=== PATIENT | female | born 1990 | race Caucasian/White ===

== ENCOUNTER 2018-05-23 10:05 | Emergency (ER) | payer MEDICAID ==
[2018-05-23 11:16] LABS: URINE BLOOD (Dip) POC Negative (NEGATIVE); URINE GLUCOSE (Dip) POC Negative (NEGATIVE); URINE KETONES (Dip) POC Negative (NEGATIVE); URINE LEUKOCYTE EST (Dip) POC Negative (NEGATIVE); URINE NITRITE (Dip) POC Negative (NEGATIVE); URINE TOTAL PROTEIN POC Negative (NEGATIVE)
[2018-05-23] MEDS: ACETAMINOPHEN 325 MG TAB PO (11:18)
[2018-05-23 11:25] LABS: ADD MAN DIFF? NO
[2018-05-23 11:34] LABS: BASOPHILS % 0.4 % (0.0-2.0); EOSINOPHILS # 0.1 10^3/ul (0.0-0.5); EOSINOPHILS % 0.5 % (0.0-7.0); HEMATOCRIT 39.2 % (37.0-47.0); HEMOGLOBIN 13.3 g/dl (12.0-16.0); LYMPHOCYTES # 2.5 10^3/ul (0.8-2.9); LYMPHOCYTES % 25.5 % (15.0-51.0); MEAN CORPUSCULAR HEMOGLOBIN 30.4 pg (29.0-33.0); MEAN CORPUSCULAR HGB CONC 33.9 g/dl (32.0-37.0); MEAN CORPUSCULAR VOLUME 89.7 fl (82.0-101.0); MEAN PLATELET VOLUME 9.9 fl (7.4-10.4); MONOCYTE # 0.8 10^3/ul (0.3-0.9); NEUTROPHIL # 6.4 10^3/ul (1.6-7.5); NEUTROPHILS % 65.2 % (39.0-77.0); PLATELET COUNT 328 10^3/UL (140-415); RED BLOOD COUNT 4.37 10^6/ul (4.20-5.40); RED CELL DISTRIBUTION WIDTH 12.1 % (11.5-14.5)
[2018-05-23 11:34] LABS: WHITE BLOOD COUNT 9.8 10^3/ul (4.8-10.8)
== END 2018-05-23 12:47 | disposition home or self-care (01) ==
LOC: FTE 10:05
DX: O26.891 Other specified pregnancy related conditions, first trimester (principal); R10.2 Pelvic and perineal pain; Z3A.01 Less than 8 weeks gestation of pregnancy
CPT/HCPCS: 76801; 76817; 81003; 81025; 84702; 85025; 99284-25

== ENCOUNTER 2018-07-19 01:40 | Emergency (ER) | payer MEDICAID ==
[2018-07-19] MEDS: SOD CHLORIDE 0.9% 1,000 ML IV (03:06)
[2018-07-19 03:13] LABS: WHITE BLOOD COUNT 14.9 10^3/ul (4.8-10.8)
[2018-07-19 03:13] LABS: ADD MAN DIFF? NO; BASOPHIL # 0.1 10^3/ul (0.0-0.1); BASOPHILS % 0.3 % (0.0-2.0); EOSINOPHILS % 0.1 % (0.0-7.0); HEMOGLOBIN 11.4 g/dl (12.0-16.0); LYMPHOCYTES # 1.4 10^3/ul (0.8-2.9); LYMPHOCYTES % 9.4 % (15.0-51.0); MEAN CORPUSCULAR HEMOGLOBIN 30.6 pg (29.0-33.0); MEAN CORPUSCULAR HGB CONC 34.5 g/dl (32.0-37.0); MEAN CORPUSCULAR VOLUME 88.7 fl (82.0-101.0); MEAN PLATELET VOLUME 10.5 fl (7.4-10.4); MONOCYTE # 1.2 10^3/ul (0.3-0.9); MONOCYTES % 8.3 % (0.0-11.0); NEUTROPHILS % 80.9 % (39.0-77.0); PLATELET COUNT 275 10^3/UL (140-415); RED BLOOD COUNT 3.72 10^6/ul (4.20-5.40); RED CELL DISTRIBUTION WIDTH 12.9 % (11.5-14.5)
[2018-07-19 03:46] LABS: TROPONIN-I < 0.012 ng/ml (0.000-0.120)
[2018-07-19 03:51] LABS: ALANINE AMINOTRANSFERASE 36 IU/L (13-69); ALBUMIN 3.7 g/dl (3.3-4.9); ALBUMIN/GLOBULIN RATIO 1.23; ALKALINE PHOSPHATASE 87 IU/L (42-121); ANION GAP 10 (5-13); ASPARTATE AMINO TRANSFERASE 27 IU/L (15-46); BILIRUBIN,INDIRECT 0.3 mg/dl (0-1.1); BILIRUBIN,TOTAL 0.3 mg/dl (0.2-1.3); BLOOD UREA NITROGEN 3 mg/dl (7-20); CALCIUM 9.5 mg/dl (8.4-10.2); CARBON DIOXIDE 21 mmol/L (21-31); CHLORIDE 107 mmol/L (97-110); CREATININE 0.35 mg/dl (0.44-1.00); Estimated GFR > 60 mL/min (>60); GLUCOSE 101 mg/dl (70-220); POTASSIUM 3.2 mmol/L (3.5-5.1); SODIUM 138 mmol/L (135-144); TOTAL PROTEIN 6.7 g/dl (6.1-8.1)
[2018-07-19 04:32] LABS: ADD UMIC NO; UR ASCORBIC ACID NEGATIVE (NEGATIVE); UR BILIRUBIN (Dip) NEGATIVE (NEGATIVE); UR BLOOD (Dip) NEGATIVE (NEGATIVE); UR CLARITY SLIGHTLY CLOUDY (CLEAR); UR COLOR YELLOW (YELLOW); UR GLUCOSE (Dip) NEGATIVE (NEGATIVE); UR KETONES (Dip) 1+ mg/dL (NEGATIVE); UR LEUKOCYTE ESTERASE (Dip) NEGATIVE Leu/ul (NEGATIVE); UR NITRITE (Dip) NEGATIVE (NEGATIVE); UR RBC 1 /HPF (0-5); UR SPECIFIC GRAVITY (Dip) 1.005 (1.003-1.030); UR SQUAMOUS EPITHELIAL CELL FEW /HPF (FEW); UR TOTAL PROTEIN (Dip) NEGATIVE (NEGATIVE); UR UROBILINOGEN (Dip) NEGATIVE (NEGATIVE); UR WBC 3 /HPF (0-5)
== END 2018-07-19 05:16 | disposition home or self-care (01) ==
LOC: E/R 01:40
DX: O99.89 Other specified diseases and conditions complicating pregnancy, childbirth and the puerperium (principal); B34.9 Viral infection, unspecified; R10.9 Unspecified abdominal pain; Z3A.16 16 weeks gestation of pregnancy
CPT/HCPCS: 36415; 76801; 80053; 81001; 81003; 84484; 84702; 85025; 86900; 86901; 87086; 93005; 96360; 99285-25

== ENCOUNTER → 2018-09-07 | Outpatient (CLI) | payer MEDICAID | END | disposition home or self-care (01) | LOC: RAD 11:23 | DX: R76.11 Nonspecific reaction to tuberculin skin test without active tuberculosis (principal) | CPT/HCPCS: 71046 ==

== ENCOUNTER 2018-10-06 10:37 | Outpatient (CLI) | payer MEDICAID ==
[2018-10-06 12:07] LABS: ADD UMIC YES; UR ASCORBIC ACID NEGATIVE (NEGATIVE); UR BACTERIA FEW /HPF (NONE SEEN); UR BILIRUBIN (Dip) NEGATIVE (NEGATIVE); UR BLOOD (Dip) NEGATIVE (NEGATIVE); UR CLARITY SLIGHTLY CLOUDY (CLEAR); UR COLOR YELLOW (YELLOW); UR GLUCOSE (Dip) NEGATIVE (NEGATIVE); UR KETONES (Dip) NEGATIVE (NEGATIVE); UR LEUKOCYTE ESTERASE (Dip) TRACE Leu/ul (NEGATIVE); UR NITRITE (Dip) NEGATIVE (NEGATIVE); UR RBC 1 /HPF (0-5); UR SPECIFIC GRAVITY (Dip) 1.008 (1.003-1.030); UR SQUAMOUS EPITHELIAL CELL FEW /HPF (FEW); UR TOTAL PROTEIN (Dip) NEGATIVE (NEGATIVE); UR UROBILINOGEN (Dip) NEGATIVE (NEGATIVE); UR WBC 11 /HPF (0-5)
== END 2018-10-06 12:54 | disposition home or self-care (01) ==
LOC: OBT 10:37 → L-D 10:38 → OBT 12:54
DX: O26.892 Other specified pregnancy related conditions, second trimester (principal); Z3A.27 27 weeks gestation of pregnancy
CPT/HCPCS: 76818; 81001; 87086

== ENCOUNTER 2018-10-19 14:30 | Outpatient (CLI) | payer MEDICAID ==
[2018-10-19 15:13] LABS: ADD UMIC NO; UR ASCORBIC ACID NEGATIVE (NEGATIVE); UR BILIRUBIN (Dip) NEGATIVE (NEGATIVE); UR BLOOD (Dip) NEGATIVE (NEGATIVE); UR CLARITY CLEAR (CLEAR); UR COLOR STRAW (YELLOW); UR GLUCOSE (Dip) NEGATIVE (NEGATIVE); UR KETONES (Dip) NEGATIVE (NEGATIVE); UR LEUKOCYTE ESTERASE (Dip) NEGATIVE Leu/ul (NEGATIVE); UR NITRITE (Dip) NEGATIVE (NEGATIVE); UR SPECIFIC GRAVITY (Dip) 1.003 (1.003-1.030); UR TOTAL PROTEIN (Dip) NEGATIVE (NEGATIVE); UR UROBILINOGEN (Dip) NEGATIVE (NEGATIVE)
== END 2018-10-19 17:57 | disposition home or self-care (01) ==
LOC: OBT 14:30 → L-D 14:30 → OBT 17:57
DX: O62.9 Abnormality of forces of labor, unspecified (principal); Z3A.29 29 weeks gestation of pregnancy
CPT/HCPCS: 76817; 76818; 81003; 87086

== ENCOUNTER 2018-12-29 11:48 | Inpatient (IN) | payer MEDICAID ==
[2018-12-29 13:15] LABS: RUPTURE FETAL MEMBRANES POSITIVE (NEGATIVE)
[2018-12-29] MEDS ORDERED: METHYLERGONOVINE 0.2 MG INJ IM (13:30)
[2018-12-29] MEDS ORDERED: MISOPROSTOL 200 MCG TAB PR (13:30)
[2018-12-29] MEDS ORDERED: BUTORPHANOL 2 MG INJ IV (13:30)
[2018-12-29] MEDS ORDERED: CARBOPROST 250 MCG INJ IM (13:30)
[2018-12-29] MEDS ORDERED: LIDOCAINE 1% (MPF) 30 ML INJ INJ (13:30)
[2018-12-29] MEDS ORDERED: OXYTOCIN 30 UNITS/LR 500 ML IV ×3 (13:30)
[2018-12-29] MEDS ORDERED: MINERAL OIL LIGHT 10 ML VIAL TOP (14:00)
[2018-12-29 15:53] LABS: ADD MAN DIFF? NO
[2018-12-29 15:55] LABS: WHITE BLOOD COUNT 9.2 10^3/ul (4.8-10.8)
[2018-12-29 15:55] LABS: BASOPHILS % 0.4 % (0.0-2.0); EOSINOPHILS # 0.1 10^3/ul (0.0-0.5); EOSINOPHILS % 0.7 % (0.0-7.0); HEMATOCRIT 37.6 % (37.0-47.0); HEMOGLOBIN 12.1 g/dl (12.0-16.0); LYMPHOCYTES # 2.4 10^3/ul (0.8-2.9); LYMPHOCYTES % 25.8 % (15.0-51.0); MEAN CORPUSCULAR HEMOGLOBIN 28.8 pg (29.0-33.0); MEAN CORPUSCULAR HGB CONC 32.2 g/dl (32.0-37.0); MEAN CORPUSCULAR VOLUME 89.5 fl (82.0-101.0); MEAN PLATELET VOLUME 10.3 fl (7.4-10.4); MONOCYTE # 0.8 10^3/ul (0.3-0.9); MONOCYTES % 8.4 % (0.0-11.0); NEUTROPHIL # 5.9 10^3/ul (1.6-7.5); NEUTROPHILS % 63.9 % (39.0-77.0); PLATELET COUNT 318 10^3/UL (140-415); RED CELL DISTRIBUTION WIDTH 13.7 % (11.5-14.5)
[2018-12-29] MEDS: LACTATED RINGER'S 1,000 ML IV ×2 (15:58→22:12)
[2018-12-29 16:13] LABS: INR 0.85; PROTIME 11.7 Sec (11.9-14.9); PT RATIO 0.9
[2018-12-29 16:14] LABS: PARTIAL THROMBOPLASTIN TIME 27.7 Sec (23.0-35.0)
[2018-12-29] MEDS: MISOPROSTOL 50 MCG CAPSULE PO ×2 (16:30→20:57)
[2018-12-30] MEDS: CLINDAMYCIN 600 MG/D5W (PMX) 50 ML IVPB ×4 (00:31→20:01)
[2018-12-30] MEDS: MISOPROSTOL 50 MCG CAPSULE PO ×6 (03:53→19:26)
[2018-12-30] MEDS: LACTATED RINGER'S 1,000 ML IV ×3 (06:56→22:24)
[2018-12-30] MEDS ORDERED: CLINDAMYCIN 900 MG IVPB (13:04)
[2018-12-30 22:02] LABS: RAPID PLASMA REAGIN NONREACTIVE (NR)
[2018-12-30 22:16] LABS: ADD MAN DIFF? NO
[2018-12-30 22:22] LABS: WHITE BLOOD COUNT 7.4 10^3/ul (4.8-10.8)
[2018-12-30 22:22] LABS: BASOPHIL # 0.1 10^3/ul (0.0-0.1); BASOPHILS % 0.7 % (0.0-2.0); EOSINOPHILS # 0.1 10^3/ul (0.0-0.5); EOSINOPHILS % 0.9 % (0.0-7.0); HEMATOCRIT 34.3 % (37.0-47.0); HEMOGLOBIN 11.2 g/dl (12.0-16.0); LYMPHOCYTES # 2.3 10^3/ul (0.8-2.9); LYMPHOCYTES % 30.5 % (15.0-51.0); MEAN CORPUSCULAR HEMOGLOBIN 29.5 pg (29.0-33.0); MEAN CORPUSCULAR HGB CONC 32.7 g/dl (32.0-37.0); MEAN CORPUSCULAR VOLUME 90.3 fl (82.0-101.0); MEAN PLATELET VOLUME 10.1 fl (7.4-10.4); MONOCYTE # 0.7 10^3/ul (0.3-0.9); MONOCYTES % 9.6 % (0.0-11.0); NEUTROPHIL # 4.3 10^3/ul (1.6-7.5); NEUTROPHILS % 57.8 % (39.0-77.0); PLATELET COUNT 290 10^3/UL (140-415); RED CELL DISTRIBUTION WIDTH 13.8 % (11.5-14.5)
[2018-12-30 22:39] LABS: ALANINE AMINOTRANSFERASE 16 IU/L (13-69); ALBUMIN/GLOBULIN RATIO 0.93; ALKALINE PHOSPHATASE 177 IU/L (42-121); ANION GAP 6 (5-13); ASPARTATE AMINO TRANSFERASE 17 IU/L (15-46); BILIRUBIN,INDIRECT 0.4 mg/dl (0-1.1); BILIRUBIN,TOTAL 0.4 mg/dl (0.2-1.3); BLOOD UREA NITROGEN 7 mg/dl (7-20); CARBON DIOXIDE 23 mmol/L (21-31); CHLORIDE 105 mmol/L (97-110); CREATININE 0.55 mg/dl (0.44-1.00); Estimated GFR > 60 mL/min (>60); GLUCOSE 121 mg/dl (70-220); POTASSIUM 3.7 mmol/L (3.5-5.1); SODIUM 134 mmol/L (135-144); TOTAL PROTEIN 6.2 g/dl (6.1-8.1); URIC ACID 3.5 mg/dl (3.1-7.9)
[2018-12-30 22:46] LABS: INR 0.89; PROTIME 12.2 Sec (11.9-14.9)
[2018-12-30 22:47] LABS: PARTIAL THROMBOPLASTIN TIME 27.1 Sec (23.0-35.0)
[2018-12-30 22:49] LABS: ADD UMIC NO; UR ASCORBIC ACID NEGATIVE (NEGATIVE); UR BILIRUBIN (Dip) NEGATIVE (NEGATIVE); UR BLOOD (Dip) NEGATIVE (NEGATIVE); UR CLARITY CLEAR (CLEAR); UR COLOR STRAW (YELLOW); UR GLUCOSE (Dip) NEGATIVE (NEGATIVE); UR KETONES (Dip) NEGATIVE (NEGATIVE); UR LEUKOCYTE ESTERASE (Dip) NEGATIVE Leu/ul (NEGATIVE); UR NITRITE (Dip) NEGATIVE (NEGATIVE); UR SPECIFIC GRAVITY (Dip) 1.004 (1.003-1.030); UR TOTAL PROTEIN (Dip) NEGATIVE (NEGATIVE); UR UROBILINOGEN (Dip) NEGATIVE (NEGATIVE)
[2018-12-30] MEDS: OXYTOCIN 30 UNITS/LR 500 ML IV (23:33)
[2018-12-31] MEDS: CLINDAMYCIN 600 MG/D5W (PMX) 50 ML IVPB ×4 (04:05→21:54)
[2018-12-31] MEDS: LACTATED RINGER'S 1,000 ML IV ×3 (06:46→18:43)
[2018-12-31] MEDS ORDERED: FENTAnyl 2MCG/ML-ROPIV 0.2% 100 ML (14:41)
[2018-12-31] MEDS ORDERED: NALOXONE (0.4 MG/ML) INJ IV (15:00)
[2018-12-31] MEDS ORDERED: ONDANSETRON 4 MG INJ IV (15:00)
[2018-12-31] MEDS ORDERED: DIPHENHYDRAMINE 50 MG INJ IV (15:00)
[2018-12-31] MEDS: FENTAnyl 2MCG/ML-ROPIV 0.2% 100 ML BAG EPI (22:57)
[2019-01-01] MEDS: LACTATED RINGER'S 1,000 ML IV ×4 (04:00→20:31)
[2019-01-01] MEDS: CLINDAMYCIN 600 MG/D5W (PMX) 50 ML IVPB ×4 (04:00→18:00)
[2019-01-01] MEDS: FENTAnyl 2MCG/ML-ROPIV 0.2% 100 ML BAG EPI ×3 (05:23→18:33)
[2019-01-01] MEDS: OXYTOCIN 30 UNITS/LR 500 ML IV (16:11)
[2019-01-01] MEDS ORDERED: AZITHROMYCIN 500MG/NS (PMX) 250 ML IV (19:30)
[2019-01-01] MEDS ORDERED: LIDOCAINE 2% (SDV) 5 ML INJ ×2 (19:51→20:49)
[2019-01-01] MEDS ORDERED: ONDANSETRON 4 MG INJ (19:57)
[2019-01-01] MEDS ORDERED: METOCLOPRAMIDE 10 MG INJ (20:12)
[2019-01-01] MEDS ORDERED: OXYTOCIN 10 UNIT INJ ×2 (20:12→20:33)
[2019-01-01] MEDS ORDERED: MIDAZOLAM 1 MG/ML 2 ML INJ ×2 (20:18)
[2019-01-01] MEDS ORDERED: FENTAnyl 50 MCG/ML VIAL (20:18)
[2019-01-01] MEDS ORDERED: morphine SULFATE/PF (10 MG/10 ML) INJ (20:34)
[2019-01-01] MEDS ORDERED: KETAMINE (50 MG/ML) 10 ML VIAL (20:51)
[2019-01-01] MEDS ORDERED: NALBUPHINE HCL (10 MG/1 ML) INJ IV (21:00)
[2019-01-01] MEDS ORDERED: ONDANSETRON 4 MG INJ IV (21:00)
[2019-01-01] MEDS ORDERED: MIDAZOLAM 1 MG/ML 2 ML INJ IV (21:00)
[2019-01-01] MEDS: ONDANSETRON 4 MG INJ IV (21:00)
[2019-01-01] MEDS ORDERED: DIPHENHYDRAMINE 50 MG INJ IV (21:00)
[2019-01-01] MEDS ORDERED: MEPERIDINE 25 MG INJ IV (21:00)
[2019-01-01] MEDS ORDERED: NALOXONE (0.4 MG/ML) INJ IV (21:00)
[2019-01-01] MEDS ORDERED: HYDROmorphONE 0.5 MG/0.5 ML SYG IV ×2 (21:00)
[2019-01-01] MEDS ORDERED: ZOLPIDEM 5 MG TAB PO (21:00)
[2019-01-01] MEDS ORDERED: OXYTOCIN IV (21:11)
[2019-01-01] MEDS ORDERED: LR IV (21:11)
[2019-01-02] MEDS ORDERED: CARBOPROST 250 MCG INJ IM
[2019-01-02] MEDS ORDERED: MISOPROSTOL 200 MCG TAB PR
[2019-01-02] MEDS ORDERED: METHYLERGONOVINE 0.2 MG INJ IM
[2019-01-02] MEDS ORDERED: ONDANSETRON 4 MG INJ IV
[2019-01-02] MEDS ORDERED: ZOLPIDEM 5 MG TAB PO
[2019-01-02] MEDS ORDERED: OXYTOCIN 30 UNITS/LR 500 ML IV
[2019-01-02] MEDS ORDERED: DIPHENHYDRAMINE 50 MG INJ IV
[2019-01-02] MEDS: DIPHENHYDRAMINE 50 MG INJ IV (00:22)
[2019-01-02] MEDS: LACTATED RINGER'S 1,000 ML IV ×3 (01:30→23:00)
[2019-01-02] MEDS: KETOROLAC 30 MG INJ IV ×3 (04:35→17:50)
[2019-01-02 06:42] LABS: ADD MAN DIFF? NO
[2019-01-02 06:53] LABS: BASOPHILS % 0.3 % (0.0-2.0); EOSINOPHILS % 0.1 % (0.0-7.0); HEMATOCRIT 27.5 % (37.0-47.0); HEMOGLOBIN 9.1 g/dl (12.0-16.0); LYMPHOCYTES # 1.5 10^3/ul (0.8-2.9); LYMPHOCYTES % 9.9 % (15.0-51.0); MEAN CORPUSCULAR HEMOGLOBIN 29.7 pg (29.0-33.0); MEAN CORPUSCULAR HGB CONC 33.1 g/dl (32.0-37.0); MEAN CORPUSCULAR VOLUME 89.9 fl (82.0-101.0); MONOCYTES % 6.9 % (0.0-11.0); NEUTROPHIL # 12.2 10^3/ul (1.6-7.5); NEUTROPHILS % 82.3 % (39.0-77.0); PLATELET COUNT 213 10^3/UL (140-415); RED BLOOD COUNT 3.06 10^6/ul (4.20-5.40)
[2019-01-02 06:53] LABS: WHITE BLOOD COUNT 14.8 10^3/ul (4.8-10.8)
[2019-01-02] MEDS: SENNA/DOCUSATE NA (8.6MG/50MG) TAB PO ×2 (08:56→21:00)
[2019-01-02] MEDS: LANOLIN HPA 1 PKT TOP (08:56)
[2019-01-02] MEDS ORDERED: LEVALBUTEROL (NEB) 0.63 MG/3 ML AMP HHN ×2 (17:30→22:00)
[2019-01-02] MEDS ORDERED: IPRATROPIUM (NEB) 0.5 MG/2.5 ML AMP HHN ×2 (17:30→22:00)
[2019-01-02] MEDS ORDERED: CEFTRIAXONE 1 GM/50 ML (PMX) 50 ML IVPB (18:00)
[2019-01-02 18:13] LABS: AADO2 Arterial 189.1 mmHg (7.0-24.0); Allen Test ACCEPTAB; Arterial Base Excess -1.7 mmol/L (-3.0-3); Arterial Blood Gas Oxygen Sat 97.2 mmHG (95.0-98.0); Arterial COHb 0.3 % (0.0-3.0); Arterial Fraction of Oxyhgb 96.3 % (93.0-99.0); Arterial HCO3 21.1 mmol/L (22.0-26.0); Arterial MetHb 0.6 % (0.0-1.5); Arterial pCO2 28.7 mmhg (35-45); MODE MASK - SIMPLE; Site Right Radial
[2019-01-02 19:35] LABS: ADD UMIC YES; UR ASCORBIC ACID NEGATIVE (NEGATIVE); UR BILIRUBIN (Dip) NEGATIVE (NEGATIVE); UR BLOOD (Dip) 1+ mg/dL (NEGATIVE); UR CLARITY CLEAR (CLEAR); UR COLOR YELLOW (YELLOW); UR GLUCOSE (Dip) NEGATIVE (NEGATIVE); UR KETONES (Dip) NEGATIVE (NEGATIVE); UR LEUKOCYTE ESTERASE (Dip) TRACE Leu/ul (NEGATIVE); UR NITRITE (Dip) NEGATIVE (NEGATIVE); UR RBC 2 /HPF (0-5); UR SPECIFIC GRAVITY (Dip) 1.008 (1.003-1.030); UR TOTAL PROTEIN (Dip) NEGATIVE (NEGATIVE); UR UROBILINOGEN (Dip) NEGATIVE (NEGATIVE); UR WBC 7 /HPF (0-5)
[2019-01-02 19:49] LABS: ALANINE AMINOTRANSFERASE 23 IU/L (13-69); ALBUMIN 1.9 g/dl (3.3-4.9); ALBUMIN/GLOBULIN RATIO 0.82; ALKALINE PHOSPHATASE 108 IU/L (42-121); ANION GAP 3 (5-13); ASPARTATE AMINO TRANSFERASE 26 IU/L (15-46); BILIRUBIN,INDIRECT 0.3 mg/dl (0-1.1); BILIRUBIN,TOTAL 0.3 mg/dl (0.2-1.3); BLOOD UREA NITROGEN 8 mg/dl (7-20); CALCIUM 7.4 mg/dl (8.4-10.2); CARBON DIOXIDE 25 mmol/L (21-31); CHLORIDE 106 mmol/L (97-110); CREATININE 0.58 mg/dl (0.44-1.00); Estimated GFR > 60 mL/min (>60); GLUCOSE 93 mg/dl (70-220); POTASSIUM 3.5 mmol/L (3.5-5.1); SODIUM 134 mmol/L (135-144); TOTAL PROTEIN 4.2 g/dl (6.1-8.1)
[2019-01-02 20:01] LABS: B-TYPE NATRIURETIC PEPTIDE 1220 PG/ML (0-125); TROPONIN-I 0.045 ng/ml (0.000-0.120)
[2019-01-02] MEDS: IOHEXOL 100 ML (20:03)
[2019-01-02] MEDS: SOD CHLORIDE 0.9% 100 ML (20:03)
[2019-01-02] MEDS: BUDESONIDE (NEB) 0.5MG/2ML AMP HHN (20:25)
[2019-01-02] MEDS: LEVALBUTEROL (NEB) 1.25 MG/0.5 ML AMP HHN (20:25)
[2019-01-02] MEDS: IPRATROPIUM (NEB) 0.5 MG/2.5 ML AMP HHN (20:25)
[2019-01-02] MEDS ORDERED: ALBUTEROL/IPRATROPIUM (NEB) 3 ML AMP HHN (21:00)
[2019-01-02] MEDS ORDERED: metroNIDAZOLE 500 MG/NS (PMX) 100 ML IVPB (22:00)
[2019-01-02] MEDS: MEROPENEM 1 GM/50ML(PMX) 50 ML IVPB (22:56)
[2019-01-02] MEDS: FUROSEMIDE 20 MG TAB PO (23:11)
[2019-01-02] MEDS: OXYCODONE/ACETAMINOPHEN (5/325) TAB PO (23:14)
[2019-01-03] MEDS: MEROPENEM 1 GM/50ML(PMX) 50 ML IVPB ×3 (06:02→22:09)
[2019-01-03] MEDS: IBUPROFEN 600 MG TAB PO ×4 (06:02→17:36)
[2019-01-03] MEDS: LACTATED RINGER'S 1,000 ML IV ×3 (07:00→23:00)
[2019-01-03] MEDS: BUDESONIDE (NEB) 0.5MG/2ML AMP HHN ×2 (08:15→19:53)
[2019-01-03] MEDS: LEVALBUTEROL (NEB) 1.25 MG/0.5 ML AMP HHN ×3 (08:15→19:43)
[2019-01-03] MEDS: IPRATROPIUM (NEB) 0.5 MG/2.5 ML AMP HHN ×3 (08:15→19:43)
[2019-01-03] MEDS: SENNA/DOCUSATE NA (8.6MG/50MG) TAB PO ×2 (09:00→21:35)
[2019-01-03] MEDS: OXYCODONE/ACETAMINOPHEN (5/325) TAB PO ×3 (09:13→22:27)
[2019-01-04] MEDS: IBUPROFEN 600 MG TAB PO ×5 (00:31→23:43)
[2019-01-04] MEDS: MEROPENEM 1 GM/50ML(PMX) 50 ML IVPB ×3 (05:57→22:01)
[2019-01-04] MEDS: LACTATED RINGER'S 1,000 ML IV ×3 (07:00→23:00)
[2019-01-04 07:10] LABS: ADD MAN DIFF? NO
[2019-01-04 07:21] LABS: BASOPHILS % 0.4 % (0.0-2.0); EOSINOPHILS # 0.3 10^3/ul (0.0-0.5); EOSINOPHILS % 2.4 % (0.0-7.0); HEMOGLOBIN 7.2 g/dl (12.0-16.0); LYMPHOCYTES # 2.6 10^3/ul (0.8-2.9); LYMPHOCYTES % 24.9 % (15.0-51.0); MEAN CORPUSCULAR HEMOGLOBIN 29.8 pg (29.0-33.0); MEAN CORPUSCULAR HGB CONC 32.7 g/dl (32.0-37.0); MEAN CORPUSCULAR VOLUME 90.9 fl (82.0-101.0); MEAN PLATELET VOLUME 10.5 fl (7.4-10.4); MONOCYTE # 0.7 10^3/ul (0.3-0.9); MONOCYTES % 6.8 % (0.0-11.0); NEUTROPHIL # 6.8 10^3/ul (1.6-7.5); NEUTROPHILS % 63.8 % (39.0-77.0); PLATELET COUNT 242 10^3/UL (140-415); RED BLOOD COUNT 2.42 10^6/ul (4.20-5.40)
[2019-01-04 07:21] LABS: WHITE BLOOD COUNT 10.6 10^3/ul (4.8-10.8)
[2019-01-04 07:43] LABS: ALBUMIN 2.3 g/dl (3.3-4.9); ANION GAP 4 (5-13); BLOOD UREA NITROGEN 7 mg/dl (7-20); CALCIUM 7.6 mg/dl (8.4-10.2); CARBON DIOXIDE 29 mmol/L (21-31); CHLORIDE 103 mmol/L (97-110); CREATININE 0.47 mg/dl (0.44-1.00); GLUCOSE 71 mg/dl (70-220); MAGNESIUM 1.3 mg/dl (1.7-2.5); PHOSPHORUS 4.7 mg/dl (2.5-4.9); POTASSIUM 3.1 mmol/L (3.5-5.1); SODIUM 136 mmol/L (135-144)
[2019-01-04] MEDS: OXYCODONE/ACETAMINOPHEN (5/325) TAB PO (08:29)
[2019-01-04] MEDS: DIPHTH/TET/ACEL PERTUSS (ADULT) 0.5 ML VIAL IM* (09:00)
[2019-01-04] MEDS: SENNA/DOCUSATE NA (8.6MG/50MG) TAB PO ×2 (09:00→22:01)
[2019-01-04] MEDS: IPRATROPIUM (NEB) 0.5 MG/2.5 ML AMP HHN ×3 (10:15→20:19)
[2019-01-04] MEDS: LEVALBUTEROL (NEB) 1.25 MG/0.5 ML AMP HHN ×3 (10:16→20:19)
[2019-01-04] MEDS: BUDESONIDE (NEB) 0.5MG/2ML AMP HHN ×2 (10:16→20:18)
[2019-01-04] MEDS: MAGNESIUM OXIDE 400 MG TAB PO ×2 (11:39→22:01)
[2019-01-04] MEDS: POTASSIUM CHLORIDE (SR) 20 MEQ TAB PO ×2 (11:39→15:16)
[2019-01-04] MEDS: FERROUS GLUCONATE (EC) 325 MG TAB PO (22:01)
[2019-01-05] MEDS: IBUPROFEN 600 MG TAB PO ×3 (06:05→17:39)
[2019-01-05] MEDS: MEROPENEM 1 GM/50ML(PMX) 50 ML IVPB (06:05)
[2019-01-05 06:48] LABS: ADD MAN DIFF? NO
[2019-01-05 06:56] LABS: WHITE BLOOD COUNT 9.8 10^3/ul (4.8-10.8)
[2019-01-05 06:56] LABS: BASOPHIL # 0.1 10^3/ul (0.0-0.1); BASOPHILS % 0.6 % (0.0-2.0); EOSINOPHILS # 0.2 10^3/ul (0.0-0.5); EOSINOPHILS % 2.3 % (0.0-7.0); HEMATOCRIT 24.3 % (37.0-47.0); HEMOGLOBIN 7.9 g/dl (12.0-16.0); LYMPHOCYTES % 20.2 % (15.0-51.0); MEAN CORPUSCULAR HEMOGLOBIN 29.6 pg (29.0-33.0); MEAN CORPUSCULAR HGB CONC 32.5 g/dl (32.0-37.0); MONOCYTE # 0.7 10^3/ul (0.3-0.9); MONOCYTES % 7.6 % (0.0-11.0); NEUTROPHIL # 6.5 10^3/ul (1.6-7.5); NEUTROPHILS % 66.8 % (39.0-77.0); NUCLEATED RED BLOOD CELLS # 0.1 10^3/ul (0.0-0.0); PLATELET COUNT 351 10^3/UL (140-415); RED BLOOD COUNT 2.67 10^6/ul (4.20-5.40)
[2019-01-05] MEDS: LACTATED RINGER'S 1,000 ML IV (07:00)
[2019-01-05 07:11] LABS: ALBUMIN 2.6 g/dl (3.3-4.9); ANION GAP 5 (5-13); BLOOD UREA NITROGEN 7 mg/dl (7-20); CALCIUM 8.3 mg/dl (8.4-10.2); CARBON DIOXIDE 28 mmol/L (21-31); CHLORIDE 104 mmol/L (97-110); CREATININE 0.46 mg/dl (0.44-1.00); GLUCOSE 67 mg/dl (70-220); MAGNESIUM 1.5 mg/dl (1.7-2.5); PHOSPHORUS 4.4 mg/dl (2.5-4.9); POTASSIUM 4.1 mmol/L (3.5-5.1); SODIUM 137 mmol/L (135-144)
[2019-01-05] MEDS: MAGNESIUM OXIDE 400 MG TAB PO (09:14)
[2019-01-05] MEDS: SENNA/DOCUSATE NA (8.6MG/50MG) TAB PO (09:14)
[2019-01-05] MEDS: FERROUS GLUCONATE (EC) 325 MG TAB PO (09:14)
[2019-01-05] MEDS: BUDESONIDE (NEB) 0.5MG/2ML AMP HHN ×2 (09:20→20:00)
[2019-01-05] MEDS: LEVALBUTEROL (NEB) 1.25 MG/0.5 ML AMP HHN ×3 (09:20→20:00)
[2019-01-05] MEDS: IPRATROPIUM (NEB) 0.5 MG/2.5 ML AMP HHN ×3 (09:21→20:00)
[2019-01-05] MEDS: LEVOFLOXACIN 750 MG TABLET PO (13:51)
== END 2019-01-05 22:00 | disposition home or self-care (01) | DRG 787 ==
LOC: OBT 11:48 → L-D 12-30 00:22 → PP1 01-02 01:21 → L-D 11:48 → OBT 13:28 → L-D 13:28
PROVIDERS: Obstetrics & Gynecology
PROC: 10D00Z1 Extraction of Products of Conception, Low, Open Approach (ICD-10-PCS; principal; 2019-01-03)
DX: O61.9 Failed induction of labor, unspecified (principal); D62 Acute posthemorrhagic anemia; J91.0 Malignant pleural effusion; O99.53 Diseases of the respiratory system complicating the puerperium; O99.52 Diseases of the respiratory system complicating childbirth; O99.02 Anemia complicating childbirth; Z3A.39 39 weeks gestation of pregnancy; Z37.0 Single live birth
CPT/HCPCS: 36600; 71045; 71275; 76815; 76818; 80053; 80069; 81001; 81003; 82803; 82962; 83605; 83735; 83880; 84112; 84484; 84560; 85025; 85384; 85610; 85730; 86592; 86850; 86900; 86901; 87040-91; 88307; 93306; 93970; 94640; 99464